=== PATIENT | male | born 1950 | race Caucasian/White ===

== ENCOUNTER 2016-07-10 18:11 | Emergency (ER) | payer MEDICARE ==
[~2016-07-10] VITALS: Ht 172.7 cm; Wt 77.0 kg
[2016-07-10] MEDS ORDERED: ASPI325T2 PO (18:44)
[2016-07-11 00:13] VITALS: BP 139/79
== END 2016-07-11 02:38 | disposition left against medical advice (07) ==
LOC: ER 18:12
DX: S06.9X9A Unspecified intracranial injury with loss of consciousness of unspecified duration, initial encounter (principal); F31.9 Bipolar disorder, unspecified; F14.10 Cocaine abuse, uncomplicated; Z88.3 Allergy status to other anti-infective agents; Z88.2 Allergy status to sulfonamides; Z98.890 Other specified postprocedural states; Y04.0XXA Assault by unarmed brawl or fight, initial encounter; Y93.89 Activity, other specified; Y92.018 Other place in single-family (private) house as the place of occurrence of the external cause
CPT/HCPCS: 99283

== ENCOUNTER 2017-03-25 15:32 | Emergency (ER) | payer MEDICARE ==
[~2017-03-25] VITALS: Ht 172.7 cm; Wt 75.0 kg
[~2017-03-25 15:32] MED LIST: ASPI-986 PO
[2017-03-25 15:48] VITALS: BP 159/100
== END 2017-03-25 19:00 | disposition left against medical advice (07) ==
LOC: ER 15:47
DX: Z53.21 Procedure and treatment not carried out due to patient leaving prior to being seen by health care provider (principal); F14.10 Cocaine abuse, uncomplicated; F17.200 Nicotine dependence, unspecified, uncomplicated; Z88.2 Allergy status to sulfonamides; Z88.8 Allergy status to other drugs, medicaments and biological substances

== ENCOUNTER 2017-08-12 20:07 | Emergency (ER) | payer MEDICARE, OTHER ==
[~2017-08-12] VITALS: Ht 177.8 cm; Wt 90.0 kg
[2017-08-12] MEDS ORDERED: TETANUS, DIPHTHERIA, PERTUSSIS VAC/PF 0.5ML (>7YR OLD) IM ONE (21:30)
[2017-08-12] MEDS ORDERED: ACETAMINOPHEN 325MG TABLET PO ONE (21:30)
[2017-08-12 22:29] VITALS: BP 138/84
== END 2017-08-12 22:31 | disposition home or self-care (01) ==
LOC: ER 20:17
DX: S01.511A Laceration without foreign body of lip, initial encounter (principal); F31.9 Bipolar disorder, unspecified; Z88.2 Allergy status to sulfonamides; Z88.8 Allergy status to other drugs, medicaments and biological substances; X58.XXXA Exposure to other specified factors, initial encounter; Y93.89 Activity, other specified; Y92.89 Other specified places as the place of occurrence of the external cause; Y99.8 Other external cause status
CPT/HCPCS: 90471; 90715; 99283

== ENCOUNTER 2017-08-19 02:00 | Emergency (ER) | payer OTHER ==
[~2017-08-19] VITALS: Ht 175.3 cm; Wt 82.0 kg
[2017-08-19] MEDS ORDERED: LIDOCAINE HCL/PF 1% 10 MG/ML 30ML VIAL INFIL ONE (03:15)
[2017-08-19] MEDS ORDERED: BACITRACIN ZINC OINT UDPKT TOP ONE ×2 (03:15→05:15)
[2017-08-19] MEDS ORDERED: TRAMADOL 50MG TABLET PO ONE (04:00)
[2017-08-19 06:18] VITALS: BP 127/76
== END 2017-08-19 08:00 | disposition home or self-care (01) ==
LOC: ER 07:53
DX: S41.111A Laceration without foreign body of right upper arm, initial encounter (principal); S61.011A Laceration without foreign body of right thumb without damage to nail, initial encounter; S41.112A Laceration without foreign body of left upper arm, initial encounter; Z88.2 Allergy status to sulfonamides; Z88.1 Allergy status to other antibiotic agents; Z79.82 Long term (current) use of aspirin; X99.1XXA Assault by knife, initial encounter; Y93.89 Activity, other specified; Y92.89 Other specified places as the place of occurrence of the external cause; Y99.8 Other external cause status
CPT/HCPCS: 12004; 99284; J3490